=== PATIENT | male | born 1970 | race African-American/Black ===

== ENCOUNTER 2024-10-20 20:19 | Emergency (ER) | payer MEDICAID ==
[~2024-10-20] VITALS: Ht 188 cm; Wt 90.0 kg
[2024-10-20 20:24] VITALS: BP 109/72; PULSE 79; RESP 18; TEMP 36.8; O2SAT 99
[2024-10-20 23:37] LABS: HEMATOCRIT 41.3 % (42.0-52.0); HEMOGLOBIN 13.6 g/dL (14.0-18.0); PLATELET 230 x1000/uL (130-400); RED BLOOD CELL COUNT 4.53 mill/uL (4.7-6.1); RED CELL DISTRIBUTION WIDTH 14.6 % (11.6-14.6); WHITE BLOOD COUNT 3.4 x1000/uL (4.5-11.0)
[2024-10-20 23:51] LABS: CARBON DIOXIDE 25 mEq/L (21-32); CHLORIDE 104 mEq/L (98-107); POTASSIUM 3.5 mEq/L (3.5-5.1); SODIUM 139 mEq/L (136-145)
[2024-10-20 23:52] LABS: CALCIUM 9.3 mg/dL (8.7-10.4)
[2024-10-20 23:56] LABS: CREATININE 0.9 mg/dL (0.6-1.3)
[2024-10-20 23:57] LABS: GLUCOSE 95 mg/dL (70-105); UREA NITROGEN BLOOD 17 mg/dL (9-23)
[2024-10-20 23:58] LABS: ALANINE AMINOTRANSFERASE 22 IU/L (10-49); ALBUMIN 3.9 g/dL (3.2-4.8); ASPARTATE AMINOTRANSFERASE 30 IU/L (<34)
[2024-10-20 23:59] LABS: BILIRUBIN DIRECT 0.2 mg/dL (<=3.0); BILIRUBIN TOTAL 0.5 mg/dL (0.1-1.0); PROTEIN TOTAL 6.4 g/dL (6.0-8.3)
[2024-10-21] MEDS: MAGNESIUM/ALUMINUM HYDROXIDE/SIMETHICONE 30ML UDC PO ONE (00:51)
[2024-10-21] MEDS: ONDANSETRON 4MG ODT PO ONE (00:51)
[2024-10-21] MEDS: FAMOTIDINE 20MG TABLET PO ONE (00:51)
[2024-10-21] MEDS ORDERED: MEBE100T16 MT (01:47)
[2024-10-21] MEDS ORDERED: MAG-55 MT (01:47)
== END 2024-10-21 02:55 | disposition home or self-care (01) ==
LOC: ER 20:19
DX: B80 Enterobiasis (principal); K29.70 Gastritis, unspecified, without bleeding
CPT/HCPCS: 99284; 80076; 80048; 83690; 85027; Q0162

== ENCOUNTER 2025-04-05 14:29 | Emergency (ER) | payer MEDICAID, OTHER ==
[~2025-04-05] VITALS: Ht 185.4 cm; Wt 90.0 kg
[~2025-04-05 14:29] MED LIST: MAG-55 MT; MEBE100T16 MT
[2025-04-05 14:34] VITALS: BP 134/70; PULSE 76; RESP 16; TEMP 36.8; O2SAT 97
== END 2025-04-05 18:57 | disposition left against medical advice (07) ==
LOC: ER 14:29
DX: R21 Rash and other nonspecific skin eruption (principal); Z53.21 Procedure and treatment not carried out due to patient leaving prior to being seen by health care provider